=== PATIENT | female | born 1945 | race Caucasian/White ===

== ENCOUNTER 2018-06-13 21:38 | Emergency (ER) | payer MEDICARE ==
[2018-06-13] MEDS ORDERED: Nitrofurantoin Monohyd/M-Cryst 100 MG CAP ONE (22:03)
[2018-06-13] MEDS ORDERED: Phenazopyridine HCl 97.5 MG TABLET ONE (22:03)
[2018-06-13 22:08] LABS: Bilirubin Negative (Negative); Blood, Urine Large (Negative); Clarity Clear (Clear); Glucose, Urine (Dipstick) Negative (Negative); Leukocyte Moderate (Negative); Nitrite Negative (Negative); Protein, Urine (Dipstick) 30 mg/dL (Neg-Trace); Specific Gravity, Urine 1.015 (1.005-1.030); Urobilinogen 0.2 mg/dL (0.2-1.0)
[2018-06-13 22:16] LABS: Bacteria/HPF 2+ HPF (None Seen); Squamous Epithelial 0-3 HPF (0-3)
== END 2018-06-13 22:10 | disposition home or self-care (01) ==
LOC: BURERS 21:38
DX: N30.00 Acute cystitis without hematuria (principal)
CPT/HCPCS: 81003; 81015; 87077; 87086; 87186; 99283

== ENCOUNTER 2019-03-01 15:56 | Emergency (ER) | payer MEDICARE ==
[2019-03-01 16:56] LABS: #Basophils 0.1 thou/uL (0.0-0.2); #Eosinphils 0.1 thou/uL (0.0-0.7); #Lymphocytes 2.3 thou/uL (1.20-3.40); #Monocytes 0.8 thou/uL (0.11-0.59); #Neutrophils 7.4 thou/uL (1.40-6.50); %Basophils 1.3 % (0.0-1.0); %Eosinophils 1.1 % (0.0-10.0); %Lymphocytes 21.7 % (21.0-51.0); %Monocytes 7.2 % (0.0-10.0); %Neutrophils 68.6 % (42.0-75.0); Hemoglobin 12.3 g/dL (12.0-16.0); Mean Corpuscular HGB CONC 30.8 g/dL (32.0-36.0); Mean Corpuscular Hemoglobin 28.3 pg (27.0-31.0); Mean Corpuscular Volume 91.9 fL (78.0-98.0); Mean Platelet Volume 7.6 fL (7.4-10.4); Platelet Count 299 thou/uL (130-400); RBC Distribution Width 11.9 % (11.5-14.5); Red Blood Cell (RBC) Count 4.32 mill/uL (4.20-5.40); White Blood Cell (WBC) Count 10.7 thou/uL (4.8-10.8)
[2019-03-01 17:10] LABS: ALT (SGPT) 19 U/L (8-55); AST (SGOT) 15 U/L (5-34); Albumin 3.9 g/dL (3.4-4.8); Alkaline Phosphatase 125 U/L (40-110); Anion Gap 14 mmol/L (10-20); BUN (Urea Nitrogen) 17 mg/dL (9.8-20.1); Bilirubin, Total 0.3 mg/dL (0.2-1.2); Calc. Creatinine Clearance 0 mL/min (70-130); Calcium 9.1 mg/dL (7.8-10.44); Carbon Dioxide 26 mmol/L (23-31); Chloride 102 mmol/L (98-107); Estimated GFR-MDRD 44; Glucose 111 mg/dL (83-110); Potassium 4.1 mmol/L (3.5-5.1); Protein, Total 7.9 g/dL (6.0-8.3); Sodium 138 mmol/L (136-145)
--- NOTE | 2019-03-01 17:32 | RAD ---
PORTABLE CHEST 03/01/19 An AP portable film at 1619 shows some slight haziness in the right base medially. Part of this is pr obably a cardiac fat pad, however, some of the markings in the area seem marginally prominent. A very early infiltrate cannot be excluded. The left lung is clear. The heart is normal in size. Calcifica tion is seen in the aortic arch. IMPRESSION: Right basilar haziness medially. A very small acute infiltrate cannot be excluded. POS: HOME
== END 2019-03-01 17:42 | disposition home or self-care (01) ==
LOC: BURERS 15:56
DX: J18.9 Pneumonia, unspecified organism (principal)
CPT/HCPCS: 36415; 71045; 80053; 84484; 85025; 85379; 87804; 87807; 93005; 96360

== ENCOUNTER 2019-03-24 09:12 | Outpatient (CLI) | payer MEDICARE, OTHER ==
--- NOTE | 2019-03-24 16:39 | RAD ---
CHEST TWO VIEWS: Comparison: 03-01-2019 FINDINGS: There has been little change in the interval. There are several little haziness in the right base med ially, but the difference over time is not substantial. There is no vascular congestion, effusion, or infiltrate elsewhere. The cardiac size is normal. The trachea is midline . IMPRESSION: Minimal change since 03-01-2019. POS: HOME
== END 2019-03-24 09:13 | disposition home or self-care (01) ==
LOC: BURRAD 09:12
PROVIDERS: ATTEND Family Medicine
DX: J18.9 Pneumonia, unspecified organism (principal)
CPT/HCPCS: 71046

== ENCOUNTER 2021-05-30 13:45 | Emergency (ER) | payer MEDICARE, OTHER | END 2021-05-30 14:07 | disposition home or self-care (01) | LOC: BURERS 13:45 | DX: T16.1XXA Foreign body in right ear, initial encounter (principal) | CPT/HCPCS: 69200 ==

== ENCOUNTER 2021-06-16 13:30 | Emergency (ER) | payer OTHER, MEDICARE | END 2021-06-16 15:07 | disposition home or self-care (01) | LOC: BURERS 13:30 | DX: S52.121A Displaced fracture of head of right radius, initial encounter for closed fracture (principal); W01.0XXA Fall on same level from slipping, tripping and stumbling without subsequent striking against object, initial encounter | CPT/HCPCS: 29105 ==

== ENCOUNTER 2021-06-26 17:26 | Emergency (ER) | payer MEDICARE, OTHER | END 2021-06-26 17:37 | disposition home or self-care (01) | LOC: BURERS 17:26 | DX: L85.3 Xerosis cutis (principal) | CPT/HCPCS: 99282 ==